=== PATIENT | female | born 1985 | race Caucasian/White ===

== ENCOUNTER 2016-12-29 11:51 | Emergency (ER) | payer BC, MEDICAID ==
[~2016-12-29] VITALS: Ht 157.5 cm; Wt 79.5 kg
[~2016-12-29 11:51] MED LIST: ADVIL200 MG; CIPRO 500MG TA500 MG PO; FLAGYL500 MG PO; IRON325 MG PO; MOTRIN 200200 MG/TAB PO; NORCO 325 MG-51 TAB PO; ZOFRAN ODT4 MG PO
[2016-12-29 11:58] VITALS: BP 124/79; PULSE 78; TEMP 98.9
[2016-12-29 14:30] LABS: BASO % 0.4 % (0.0-2.0); EOS # 0.1 (0.0-0.7); EOS % 0.7 % (0-4.0); GRAN # 5.3 (1.4-6.5); GRAN % 66.3 % (42.2-75.2); LYMPH # 2.2 (1.2-3.4); LYMPH % 27.8 % (20.0-51.0); MEAN CELL VOLUME 80 fl (80.0-100.0); MEAN CORPUSCULAR HEMOGLOBIN 25 pg (27.0-31.0); MEAN CORPUSCULAR HGB CONC 32 g/dl (33.0-37.0); MEAN PLATELET VOLUME 9.3 fl (7.4-10.4); MONO # 0.4 (0.1-0.6); MONO % 4.7 % (1.7-9.3); PLATELET COUNT 338 K/mm3 (130-400); RED BLOOD COUNT 5.13 M/mm3 (4.10-5.30); REDCELL DISTRIBUTION WIDTH-CV 15.3 % (11.5-14.5)
[2016-12-29 14:40] LABS: ADJUSTED CALCIUM 8.7 mg/dL (8.4-10.2); ALBUMIN 4.1 gm/dL (3.5-5.0); BILIRUBIN,TOTAL 0.9 mg/dL (0.0-1.0); CALCIUM 8.8 mg/dL (8.4-10.2); CREATININE, serum 0.49 mg/dL (0.52-1.25); POTASSIUM 3.6 mmol/L (3.4-5.0); TOTAL PROTEIN 7.6 gm/dL (6.4-8.2)
[2016-12-29 14:55] LABS: PH 6 (5-8); SQUAMOUS EPITHELIAL 0-2 /hpf; URINE APPEARANCE Clear; URINE BACTERIA Rare /hpf; URINE BILIRUBIN Negative (NEGATIVE); URINE BLOOD 1+ (NEGATIVE); URINE COLOR Straw; URINE GLUCOSE Negative (NEGATIVE); URINE KETONE 1+ (NEGATIVE); URINE RBC 0-2 /hpf; URINE UROBILINOGEN Negative (NEGATIVE); URINE WBC 0-2 /hpf
== END 2016-12-29 15:43 | disposition home or self-care (01) ==
LOC: COL.ER 11:51
PROVIDERS: Physician Assistant
DX: R10.33 Periumbilical pain (principal); Z32.01 Encounter for pregnancy test, result positive

== ENCOUNTER 2019-02-13 02:31 | Emergency (ER) | payer BC ==
[~2019-02-13] VITALS: Ht 157.5 cm; Wt 86.4 kg
[~2019-02-13 02:31] MED LIST changes: +IBU800 M1 PO; +PRENATAL MVI; +PRENATAL VITAMI1 TA3 PO
[2019-02-13 02:41] VITALS: BP 117/73; TEMP 98.7
[2019-02-13] MEDS ORDERED: TESSALON PERLE200 MG PO (04:10)
[2019-02-13] MEDS ORDERED: ZITHROMAX500 M2 PO (04:10)
[2019-02-13 04:49] VITALS: PULSE 84
== END 2019-02-13 04:50 | disposition home or self-care (01) ==
LOC: COL.ER 02:31
DX: J40 Bronchitis, not specified as acute or chronic (principal); F17.210 Nicotine dependence, cigarettes, uncomplicated

== ENCOUNTER 2024-09-22 21:16 | Emergency (ER) | payer SELFPAY ==
[~2024-09-22] VITALS: Ht 157.5 cm; Wt 77.3 kg
[~2024-09-22 21:16] MED LIST changes: +TESSALON PERLE200 MG PO; +ZITHROMAX500 M2 PO
[2024-09-22 21:22] VITALS: TEMP 97.7
[2024-09-22 22:30] VITALS: BP 135/77; PULSE 54
[2024-09-22] MEDS ORDERED: Ibuprofen 400 MG TAB PO ONE (23:00)
== END 2024-09-23 00:34 | disposition home or self-care (01) ==
LOC: COL.ER 21:16
DX: T21.22XA Burn of second degree of abdominal wall, initial encounter (principal); T22.211A Burn of second degree of right forearm, initial encounter; T31.0 Burns involving less than 10% of body surface; X11.8XXA Contact with other hot tap-water, initial encounter; Y93.E9 Activity, other interior property and clothing maintenance